=== PATIENT | male | born 1985 | race Hispanic/Latino ===

== ENCOUNTER 2025-01-05 11:50 | Emergency (ER) | payer SELFPAY ==
[~2025-01-05] VITALS: Ht 154.9 cm; Wt 83.9 kg
[2025-01-05 12:06] VITALS: PULSE 88; RESP 18; TEMP 98.7
[2025-01-05] MEDS ORDERED: SODIUM CHLORIDE 0.9% 1000ML 1,000 ML IV SCH (12:45)
[2025-01-05] MEDS ORDERED: ONDANSETRON HCL INJ 2MG/ML 2ML 2 MG/ML VIAL IV PRN (12:45)
[2025-01-05 13:27] LABS: BASOPHILS % 0.3 % (0.0-1.0); EOSINOPHILS % 0.1 % (0.0-6.0); HEMATOCRIT 47.5 % (38.2-49.6); HEMOGLOBIN 15.7 g/dL (14.0-18.0); LYMPHOCYTES # (AUTO) 1.5 (1.0-3.2); LYMPHOCYTES % 11.3 % (18.0-39.1); MEAN CORPUSCULAR HEMOGLOBIN 30.5 pg (28-32); MEAN CORPUSCULAR HGB CONC 33.1 g/dL (31-35); MEAN CORPUSCULAR VOLUME 92.2 fL (81-99); MONOCYTES # (AUTO) 0.5 (0.2-0.8); NEUTROPHILS # (AUTO) 10.9 (2.1-6.9); NEUTROPHILS % 83.8 % (38.7-80.0); PLATELET COUNT 282 x10e3/uL (140-360); RED BLOOD COUNT 5.15 x10e6/uL (4.3-5.7); RED CELL DISTRIBUTION WIDTH 13.3 % (11.7-14.4); WHITE BLOOD COUNT 12.99 x10e3/uL (4.8-10.8)
[2025-01-05] MEDS: ONDANSETRON HCL INJ 2MG/ML 2ML 2 MG/ML VIAL IV STA (13:35)
[2025-01-05] MEDS: DICYCLOMINE HCL 20 MG/2 ML VIAL IM ONE (13:35)
[2025-01-05] MEDS: SODIUM CHLORIDE 0.9% 1000ML 1,000 ML IV STA (13:35)
[2025-01-05 13:40] LABS: ALBUMIN 3.8 g/dL (3.5-5.0); ALBUMIN/GLOBULIN RATIO 0.9 (0.8-2.0); ANION GAP 12.8 mmol/L (8-16); BILIRUBIN,TOTAL 0.5 mg/dL (0.2-1.2); CALCIUM 9.5 mg/dL (8.4-10.2); CREATININE, SERUM 0.69 mg/dL (0.72-1.25); POTASSIUM 3.8 mmol/L (3.5-5.1); TOTAL PROTEIN 8.2 g/dL (6.5-8.1)
[2025-01-05] MEDS ORDERED: IOPAMIDOL 370 MG/ML 100 ML INFUS..BTL INJ ONE (13:42)
[2025-01-05] MEDS ORDERED: ONDANSETRON ODT4 MG PO (16:04)
[2025-01-05] MEDS ORDERED: OMEPRAZOLE40 MG PO (16:04)
[2025-01-05] MEDS ORDERED: DICYCLOMINE HCL20 MG PO (16:04)
[2025-01-05 16:38] VITALS: BP 134/76; PULSE 84; RESP 17; O2SAT 100
== END 2025-01-05 16:40 | disposition home or self-care (01) ==
LOC: ER 12:45
DX: R10.30 Lower abdominal pain, unspecified (principal); R11.2 Nausea with vomiting, unspecified; R19.7 Diarrhea, unspecified
CPT/HCPCS: 36415; 74177; 80053; 83690; 85025; 99284; J0500; J2405; J7030; Q9967